=== PATIENT | female | born 2005 | race Hispanic/Latino ===

== ENCOUNTER 2025-01-22 11:33 | Emergency (ER) | payer SELFPAY ==
[~2025-01-22] VITALS: Ht 160 cm; Wt 114.0 kg
[~2025-01-22 11:33] MED LIST: AMOX250S53; EAR DROPS; ONDA-1; VICO5TAB
[2025-01-22 11:37] VITALS: TEMP 97.8
[2025-01-22] MEDS: KETOROLAC 60 MG/2 ML VIAL IM ONE (13:44)
[2025-01-22 14:09] VITALS: BP 137/76; O2SAT 97
== END 2025-01-22 14:10 | disposition home or self-care (01) ==
LOC: M ED 11:33
DX: S60.112A Contusion of left thumb with damage to nail, initial encounter (principal); Y92.019 Unspecified place in single-family (private) house as the place of occurrence of the external cause; Y93.9 Activity, unspecified; Y99.9 Unspecified external cause status; W23.2XXA Caught, crushed, jammed or pinched between a moving and stationary object, initial encounter; Z79.1 Long term (current) use of non-steroidal anti-inflammatories (NSAID); Z79.2 Long term (current) use of antibiotics; Z79.899 Other long term (current) drug therapy
CPT/HCPCS: 73140; 96372; 99283; J1885